=== PATIENT | female | born 1935 | race Caucasian/White ===

== ENCOUNTER 2016-08-13 10:14 | Emergency (ER) | payer MEDICARE, OTHER ==
[~2016-08-13 10:14] MED LIST: HYDR-971 PO
[2016-08-13 10:24] VITALS: BP 144/79
[2016-08-13] MEDS ORDERED: HYDR-971 PO (10:56)
[2016-08-13] MEDS ORDERED: DEXAMETHASONE SOD PHOS 10 MG/ML VIAL IM ONE (11:15)
[2016-08-13] MEDS ORDERED: FENTANYL PF 100 MCG/2 ML VIAL. IM ONE (11:15)
--- NOTE | 2016-08-13 11:51 | ED.ADGEN ---
Past History Past Medical History: Diabetes Past Surgical History: No Surgical History Alcohol Use: None Drug Use: None Adult General HPI HPI Patient is a 81-year-old female presents emergency department cleaning of chronic left shoulder pain and asking we can injected with cortisone today. Patient also reports that she has got right lower back pain. She has had pain in her back since her back surgery last October. Today she states is radiating down her right buttock and leg painful when she applies pressure. Denies any bowel or bladder dysfunction or saddle anesthesia. The patient states that she has not taken anything for the pain because she does not like to take pain pills. However, when asked what she would like for me to do today she responded that she would like some pain medication. Review of Systems Review of Systems Constitutional: Denies fever or chills [] Eyes: Denies change in visual acuity, redness, or eye pain [] HENT: Denies nasal congestion or sore throat [] Respiratory: Denies cough or shortness of breath [] Cardiovascular: No additional information not addressed in HPI [] GI: Denies abdominal pain, nausea, vomiting, bloody stools or diarrhea [] : Denies dysuria or hematuria [] Musculoskeletal: Denies back pain or joint pain [] Integument: Denies rash or skin lesions [] Neurologic: Denies headache, focal weakness or sensory changes [] Endocrine: Denies polyuria or polydipsia [] Current Medications Current Medications Current Medications Medications (Trade) Dose Ordered Sig/Gregory Start Time Stop Time Status Last Admin Dose Admin Dexamethasone Sodium Phosphate (Decadron) 6 mg 1X ONCE 08/13/16 11:15 08/13/16 11:16 DC 08/13/16 11:15 6 MG Fentanyl Citrate (Fentanyl 2ml Vial) 75 mcg 1X ONCE 08/13/16 11:15 08/13/16 11:16 DC 08/13/16 11:21 75 MCG Allergies Allergies Allergies Coded Allergies Type Severity Reaction Last Updated Verified diphenhydramine Allergy Unknown 08/13/16 Yes meperidine Allergy Unknown 08/13/16 Yes trazodone Allergy Unknown 08/13/16 Yes Physical Exam Physical Exam Constitutional: Well developed, well nourished, no acute distress, non-toxic appearance. [] HENT: Normocephalic, atraumatic, bilateral external ears normal, oropharynx moist, no oral exudates, nose normal. [] Eyes: PERRLA, EOMI, conjunctiva normal, no discharge. [] Neck: Normal range of motion, no tenderness, supple, no stridor. [] Cardiovascular:Heart rate regular rhythm, no murmur [] Lungs & Thorax: Bilateral breath sounds clear to auscultation [] Abdomen: Bowel sounds normal, soft, no tenderness, no masses, no pulsatile masses. [] Skin: Warm, dry, no erythema, no rash. [] Back: Right lumbar paraspinal tenderness to palpation, right buttock tenderness to palpation, no CVA tenderness. [] Extremities: No tenderness, no cyanosis, no clubbing, ROM intact, no edema. [] Neurologic: Alert and oriented X 3, normal motor function, normal sensory function, no focal deficits noted. [] Psychologic: Affect normal, judgement normal, mood normal. [] Current Patient Data Vital Signs Vital Signs Date Time Temp Pulse Resp B/P Pulse Ox O2 Delivery O2 Flow Rate FiO2 08/13/16 11:21 16 98 EKG EKG [] Radiology/Procedures Radiology/Procedures [] Course & Med Decision Making Course & Med Decision Making Pertinent Labs and Imaging studies reviewed. (See chart for details) Patient was given an injection of Decadron and fentanyl here in emergency department. Sent home with prescription for [place] as well as with supportive care and follow-up instructions. [] Final Impression Final Impression Low back pain [] Problems: Dragon Disclaimer Dragon Disclaimer This electronic medical record was generated, in whole or in part, using a voice recognition dictation system. GINNA HUI MD Aug 13, 2016 11:51
== END 2016-08-13 11:40 | disposition home or self-care (01) ==
LOC: ER 10:14
DX: M54.5 Low back pain (principal); M25.512 Pain in left shoulder; G89.29 Other chronic pain; E11.9 Type 2 diabetes mellitus without complications; Z88.8 Allergy status to other drugs, medicaments and biological substances
CPT/HCPCS: 96372; 99284; J1100; J3010

== ENCOUNTER 2019-04-10 11:49 | Emergency (ER) | payer MEDICARE, OTHER ==
[~2019-04-10 11:49] MED LIST changes: +HYDR-3165 PO; -HYDR-971 PO
[2019-04-10] MEDS ORDERED: DEXAMETHASONE 4 MG TABLET PO ONE (12:15)
--- NOTE | 2019-04-10 12:31 | RAD ---
PA and lateral views of the chest. Comparison: None. Indication: Cough Findings: There is a retrocardiac renal hernia. 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 Patient status post reverse left glenohumeral arthroplasty. The heart size is normal. No pneumothorax or effusion. No air space or interstitial disease. The bony structures are intact. Impression: 1. No acute cardiopulmonary process. 2. Small retrocardiac hiatal hernia. Electronically signed by: Antonio Celaya MD (04/10/2019 12:29 PM) [facility]
[2019-04-10 12:52] LABS: BACTERIA,URINE FEW /HPF (0-FEW); BILIRUBIN,URINE NEG (NEG); CLARITY,URINE CLEAR; COLOR,URINE YELLOW; GLUCOSE,URINE NEG (NEG); NITRITE,URINE NEG (NEG); UROBILINOGEN,URINE 1 mg/dL (0.2 mg/dL)
[2019-04-10 12:53] LABS: HYALINE CASTS, URINE FEW /HPF; SQUAMOUS EPITHELIAL CELL,UR FEW /LPF
[2019-04-10 13:04] LABS: INFLUENZA A PATIENT NEGATIVE (NEGATIVE); INFLUENZA B PATIENT NEGATIVE (NEGATIVE)
[2019-04-10] MEDS ORDERED: IPRATRPIUM/ALBUTEROL 0.5/2.5MG 3 ML NEBU. NEB ONE (13:30)
[2019-04-10 13:41] VITALS: BP 160/91
[2019-04-10] MEDS ORDERED: ALBU2.5V8 INH (13:41)
[2019-04-10] MEDS ORDERED: PRED20TA PO (13:41)
[2019-04-10] MEDS ORDERED: AZIT250T6 PO (13:41)
--- NOTE | 2019-04-10 13:42 | PHYS DOC ---
Past History Past Medical History: No Pertinent History Past Surgical History: Other Alcohol Use: None Drug Use: None Adult General Chief Complaint Chief Complaint: COUGH HPI HPI Patient is a [age] year old [sex] who presents with [] Review of Systems Review of Systems Constitutional: Denies fever or chills [] Eyes: Denies change in visual acuity, redness, or eye pain [] HENT: Denies nasal congestion or sore throat [] Respiratory: Denies cough or shortness of breath [] Cardiovascular: No additional information not addressed in HPI [] GI: Denies abdominal pain, nausea, vomiting, bloody stools or diarrhea [] : Denies dysuria or hematuria [] Musculoskeletal: Denies back pain or joint pain [] Integument: Denies rash or skin lesions [] Neurologic: Denies headache, focal weakness or sensory changes [] Endocrine: Denies polyuria or polydipsia [] All other systems were reviewed and found to be within normal limits, except as documented in this note. Current Medications Current Medications Current Medications Medications (Trade) Dose Ordered Sig/Gregory Start Time Stop Time Status Last Admin Dose Admin Albuterol/ Ipratropium (Duoneb) 3 ml 1X ONCE 04/10/19 13:30 04/10/19 13:31 DC Dexamethasone (Decadron) 10 mg 1X ONCE 04/10/19 12:15 04/10/19 12:20 DC 04/10/19 12:52 10 MG Allergies Allergies Allergies Coded Allergies Type Severity Reaction Last Updated Verified diphenhydramine Allergy Unknown 08/13/16 Yes meperidine Allergy Unknown 08/13/16 Yes trazodone Allergy Unknown 08/13/16 Yes Physical Exam Physical Exam Constitutional: Well developed, well nourished, no acute distress, non-toxic appearance. [] HENT: Normocephalic, atraumatic, bilateral external ears normal, oropharynx moist, no oral exudates, nose normal. [] Eyes: PERRLA, EOMI, conjunctiva normal, no discharge. [] Neck: Normal range of motion, no tenderness, supple, no stridor. [] Cardiovascular:Heart rate regular rhythm, no murmur [] Lungs & Thorax: Bilateral breath sounds clear to auscultation [] Abdomen: Bowel sounds normal, soft, no tenderness, no masses, no pulsatile masses. [] Skin: Warm, dry, no erythema, no rash. [] Back: No tenderness, no CVA tenderness. [] Extremities: No tenderness, no cyanosis, no clubbing, ROM intact, no edema. [] Neurologic: Alert and oriented X 3, normal motor function, normal sensory function, no focal deficits noted. [] Psychologic: Affect normal, judgement normal, mood normal. [] Current Patient Data Lab Results Laboratory Tests Test 04/10/19 12:02 04/10/19 12:08 Urine Collection Type Unknown Urine Color Yellow Urine Clarity Clear Urine pH 7.0 Urine Specific [place] 1.020 Urine Protein 100 mg/dl (NEG-TRACE) Urine Glucose (UA) Neg mg/dL (NEG) Urine Ketones (Stick) Neg mg/dL (NEG) Urine Blood Neg (NEG) Urine Nitrite Neg (NEG) Urine Bilirubin Neg (NEG) Urine Urobilinogen Dipstick 1 mg/dL (0.2 mg/dL) Urine Leukocyte Esterase Neg (NEG) Urine RBC 1-2 /HPF (0-2) Urine WBC 1-4 /HPF (0-4) Urine Squamous Epithelial Cells Few /LPF Urine Bacteria Few /HPF (0-FEW) Urine Hyaline Casts Few /HPF Urine Mucus Slight /LPF Influenza Type A (Rapid) Negative (NEGATIVE) Influenza Type B (Rapid) Negative (NEGATIVE) EKG EKG [] Radiology/Procedures Radiology/Procedures [] Course & Med Decision Making Course & Med Decision Making Pertinent Labs and Imaging studies reviewed. (See chart for details) [] Dragon Disclaimer Dragon Disclaimer This electronic medical record was generated, in whole or in part, using a voice recognition dictation system. Departure Departure: Impression: Primary Impression: Bronchitis Disposition: 01 HOME, SELF-CARE Condition: STABLE Referrals: CARLINE WOLFF MD (PCP) Patient Instructions: Bronchitis, [id number] Scripts Azithromycin (AZITHROMYCIN TABLET) 250 Mg Tablet 1 PKG PO UD for bronchitis, #6 TAB Take 2 tablets today and then one tablet every day thereafter for the next 4 days Prov: CHINMAY DE LEÓN DO 04/10/19 Prednisone (PREDNISONE) 20 Mg Tablet 2 TAB PO DAILY for Bronchitis, #8 TAB Prov: CIHNMAY DE LEÓN DO 04/10/19 Albuterol Sulfate (PROAIR HFA INHALER) 8.5 Gm Hfa.aer.ad 1 PUFF INH PRN Q6HRS PRN for WHEEZING, #1 INHALER 0 Refills Prov: CHINMAY DE LEÓN DO 04/10/19 CHINMAY DE LEÓN DO Apr 10, 2019 13:42
== END 2019-04-10 13:58 | disposition home or self-care (01) ==
LOC: ER 11:49
DX: J40 Bronchitis, not specified as acute or chronic (principal); Z88.8 Allergy status to other drugs, medicaments and biological substances
CPT/HCPCS: 71046; 81001; 87804; 94640; 99285; J7620; J8540

== ENCOUNTER 2019-04-15 16:06 | Emergency (ER) | payer MEDICARE, OTHER ==
[~2019-04-15] VITALS: Ht 157.5 cm; Wt 74.8 kg
[~2019-04-15 16:06] MED LIST changes: +ALBU2.5V8 INH; +AZIT250T6 PO; +PRED20TA PO
[2019-04-15 17:42] LABS: BASO # 0.1 x10^3/uL (0.0-0.2); BASO % 1 % (0-3); EOS # 0.1 x10^3/uL (0.0-0.7); EOS % 0 % (0-3); HEMATOCRIT 39.8 % (36.0-47.0); LYMPH # 3.3 x10^3/uL (1.0-4.8); LYMPH % 25 % (24-48); MEAN CORPUSCULAR HEMOGLOBIN 31 pg (25-35); MEAN CORPUSCULAR HGB CONC 33 g/dL (31-37); MEAN CORPUSCULAR VOLUME 95 fL (79-100); MONO # 1.8 x10^3/uL (0.0-1.1); MONO % 13 % (0-9); NEUT # 8.3 x10^3uL (1.8-7.7); NEUT % 61 % (31-73); PLATELET COUNT 315 x10^3/uL (140-400); RED CELL DISTRIBUTION WIDTH 14.7 % (11.5-14.5); WHITE BLOOD COUNT 13.5 x10^3/uL (4.0-11.0)
[2019-04-15 17:44] LABS: BILIRUBIN,URINE NEG (NEG); CLARITY,URINE HAZY; COLOR,URINE YELLOW; GLUCOSE,URINE NEG (NEG); NITRITE,URINE NEG (NEG); UROBILINOGEN,URINE 0.2 mg/dL (0.2 mg/dL)
[2019-04-15 17:45] LABS: BACTERIA,URINE FEW /HPF (0-FEW); GRANULAR CASTS,URINE FEW /HPF; HYALINE CASTS, URINE MOD /HPF; SQUAMOUS EPITHELIAL CELL,UR FEW /LPF
[2019-04-15 17:57] LABS: ALBUMIN 4.1 g/dL (3.4-5.0); ALBUMIN/GLOBULIN RATIO 1.2 (1.0-1.7); CALCIUM 9.6 mg/dL (8.5-10.1); CREATININE 1.7 mg/dL (0.6-1.0); GFR 28.8; POTASSIUM 4.2 mmol/L (3.5-5.1); TOTAL BILIRUBIN 0.6 mg/dL (0.2-1.0); TOTAL PROTEIN 7.6 g/dL (6.4-8.2)
[2019-04-15 18:01] VITALS: BP 129/85
[2019-04-15] MEDS ORDERED: CLON0.5T4 PO (18:17)
--- NOTE | 2019-04-15 18:17 | PHYS DOC ---
Past History Past Medical History: Anxiety, Diabetes, Hypertension, Hypothyroid, Renal Disease Past Surgical History: Cholecystectomy, Tonsillectomy, Other Additional Past Surgical Histo: L SHOULDER, BREAST REDUCTION, BACK Alcohol Use: None Drug Use: None Adult General Chief Complaint Chief Complaint: [facility] Patient is an 83-year-old female who presents with report that family had wanted her to come in to be evaluated medically. Patient had been seen a few days ago and was placed on antibiotics and steroids for an upper respiratory infection. Patient apparently has been staying up at night and has been yelling at family members. Patient denies any chest pain or shortness of breath. She states that she has been under a lot of stress lately and does feel very jittery with the medication she is taking. She denies any suicidal or homicidal ideations.[] Review of Systems Review of Systems Constitutional: Denies fever or chills [] Respiratory: Denies cough or shortness of breath [] Cardiovascular: No additional information not addressed in HPI [] GI: Denies abdominal pain, nausea, vomiting or diarrhea [] Integument: Denies rash or skin lesions [] Neurologic: Denies headache, focal weakness or sensory changes [] All other systems were reviewed and found to be within normal limits, except as documented in this note. Allergies Allergies Allergies Coded Allergies Type Severity Reaction Last Updated Verified diphenhydramine Allergy Unknown 08/13/16 Yes meperidine Allergy Unknown 08/13/16 Yes trazodone Allergy Unknown 08/13/16 Yes Physical Exam Physical Exam Constitutional: Well developed, well nourished, no acute distress, non-toxic appearance. [] HENT: Normocephalic, atraumatic, bilateral external ears normal, oropharynx moist, no oral exudates, nose normal. [] Eyes: PERRLA, EOMI, conjunctiva normal, no discharge. [] Neck: Normal range of motion, no tenderness, supple, no stridor. [] Cardiovascular: Regular rate and rhythm[] Lungs & Thorax: Bilateral breath sounds clear to auscultation [] Abdomen: Bowel sounds normal, soft, no tenderness. [] Skin: Warm, dry, no erythema, no rash. [] Extremities: No tenderness, no cyanosis, no clubbing, ROM intact. [] Neurologic: Alert and oriented X 3, no focal deficits noted. [] Current Patient Data Vital Signs Vital Signs Date Time Temp Pulse Resp B/P (MAP) Pulse Ox O2 Delivery O2 Flow Rate FiO2 04/15/19 18:01 79 20 129/85 (100) 100 Room Air 04/15/19 16:15 98.7 Lab Results Laboratory Tests Test 04/15/19 17:17 04/15/19 17:27 Urine Collection Type Unknown Urine Color Yellow Urine Clarity Hazy Urine pH 5.5 Urine Specific [place] 1.010 Urine Protein 30 mg/dl (NEG-TRACE) Urine Glucose (UA) Neg mg/dL (NEG) Urine Ketones (Stick) Neg mg/dL (NEG) Urine Blood Trace (NEG) Urine Nitrite Neg (NEG) Urine Bilirubin Neg (NEG) Urine Urobilinogen Dipstick 0.2 mg/dL (0.2 mg/dL) Urine Leukocyte Esterase Small (NEG) Urine RBC 1-2 /HPF (0-2) Urine WBC 5-10 /HPF (0-4) Urine Squamous Epithelial Cells Few /LPF Urine Bacteria Few /HPF (0-FEW) Urine Cellular Casts Occ /HPF Urine Hyaline Casts Mod /HPF Urine Granular Casts Few /HPF Urine Mucus Slight /LPF White Blood Count 13.5 x10^3/uL (4.0-11.0) H Red Blood Count 4.20 x10^6/uL (3.50-5.40) Hemoglobin 13.0 g/dL (12.0-15.5) Hematocrit 39.8 % (36.0-47.0) Mean Corpuscular Volume 95 fL (79-100) Mean Corpuscular Hemoglobin 31 pg (25-35) Mean Corpuscular Hemoglobin Concent 33 g/dL (31-37) Red Cell Distribution Width 14.7 % (11.5-14.5) H Platelet Count 315 x10^3/uL (140-400) Neutrophils (%) (Auto) 61 % (31-73) Lymphocytes (%) (Auto) 25 % (24-48) Monocytes (%) (Auto) 13 % (0-9) H Eosinophils (%) (Auto) 0 % (0-3) Basophils (%) (Auto) 1 % (0-3) Neutrophils # (Auto) 8.3 x10^3uL (1.8-7.7) H Lymphocytes # (Auto) 3.3 x10^3/uL (1.0-4.8) Monocytes # (Auto) 1.8 x10^3/uL (0.0-1.1) H Eosinophils # (Auto) 0.1 x10^3/uL (0.0-0.7) Basophils # (Auto) 0.1 x10^3/uL (0.0-0.2) Sodium Level 139 mmol/L (136-145) Potassium Level 4.2 mmol/L (3.5-5.1) Chloride Level 102 mmol/L (98-107) Carbon Dioxide Level 22 mmol/L (21-32) Anion Gap 15 (6-14) H Blood Urea Nitrogen 34 mg/dL (7-20) H Creatinine 1.7 mg/dL (0.6-1.0) H Estimated GFR (Cockcroft-Gault) 28.8 BUN/Creatinine Ratio 20 (6-20) Glucose Level 104 mg/dL (70-99) H Calcium Level 9.6 mg/dL (8.5-10.1) Total Bilirubin 0.6 mg/dL (0.2-1.0) Aspartate Amino Transferase (AST) 66 U/L (15-37) H Alanine Aminotransferase (ALT) 35 U/L (14-59) Alkaline Phosphatase 76 U/L (46-116) Total Protein 7.6 g/dL (6.4-8.2) Albumin 4.1 g/dL (3.4-5.0) Albumin/Globulin Ratio 1.2 (1.0-1.7) EKG EKG [] Radiology/Procedures Radiology/Procedures [] Course & Med Decision Making Course & Med Decision Making Pertinent Labs and Imaging studies reviewed. (See chart for details) [] Dragon Disclaimer Dragon Disclaimer This electronic medical record was generated, in whole or in part, using a voice recognition dictation system. Departure Departure: Impression: Primary Impression: Upper respiratory infection Additional Impression: Anxiety Disposition: 01 HOME, SELF-CARE Condition: STABLE Referrals: CARLINE WOLFF MD (PCP) Patient Instructions: Anxiety and Panic Attacks, Upper Respiratory Infection, Adult Scripts Clonazepam (CLONAZEPAM) 0.5 Mg Tablet 1 TAB PO BID PRN for ANXIETY / AGITATION, #10 TAB Prov: GRUPO MIRAMONTES Jr. DO 11/25/19 Problem Qualifiers Primary Impression: Upper respiratory infection URI type: unspecified URI Qualified Codes: J06.9 - Acute upper respiratory infection, unspecified GRUPO MIRAMONTES Jr. DO Apr 15, 2019 18:17
== END 2019-04-15 18:28 | disposition home or self-care (01) ==
LOC: ER 16:06
DX: F41.9 Anxiety disorder, unspecified (principal); J06.9 Acute upper respiratory infection, unspecified; E11.9 Type 2 diabetes mellitus without complications; I10 Essential (primary) hypertension; E03.9 Hypothyroidism, unspecified; N28.9 Disorder of kidney and ureter, unspecified; Z88.8 Allergy status to other drugs, medicaments and biological substances
CPT/HCPCS: 36415; 80053; 81001; 85025; 87086; 99284

== ENCOUNTER 2019-04-16 19:30 | Observation (INO) | payer MEDICARE ==
[~2019-04-16] VITALS: Ht 157.5 cm; Wt 78.2 kg
[~2019-04-16 19:30] MED LIST changes: +CLON0.5T4 PO
--- NOTE | 2019-04-16 20:17 | PHYS DOC ---
Past History Past Medical History: Anxiety, Diabetes, Hypertension, Hypothyroid, Renal Disease Past Surgical History: Cholecystectomy, Tonsillectomy, Other Additional Past Surgical Histo: L SHOULDER, BREAST REDUCTION, BACK Alcohol Use: None Drug Use: None Adult General Chief Complaint Chief Complaint: OVERDOSE HPI HPI 83-year-old female presents with concern for clonazepam overdose. History is provided by the daughter who is DPOA for medical decisions. The patient apparently took taken 5 one half milligram tablets today. He was understanding she was supposed to take 2 every 4 hours. She is now quite sleepy. The patient has bipolar and has been very irritated last few days. She did not sleep for 3 days. She did sleep somewhat last night. The patient also has Ambien prescribed. Possible that she took an Ambien. Her family is unsure. They're very concerned about her having 3 falls in the last 4 days. She is also been quite mean and agitated with her bipolar. She is not currently on bipolar medications. Review of Systems Review of Systems Constitutional: Denies fever or chills. Very sleepy. [] Eyes: Denies change in visual acuity, redness, or eye pain [] HENT: Denies nasal congestion or sore throat [] Respiratory: Denies cough or shortness of breath [] Cardiovascular: No additional information not addressed in HPI [] GI: Denies abdominal pain, nausea, vomiting, bloody stools or diarrhea [] : Denies dysuria or hematuria [] Musculoskeletal: Denies back pain or joint pain [] Integument: Denies rash or skin lesions [] Neurologic: Denies headache, focal weakness or sensory changes [] Endocrine: Denies polyuria or polydipsia [] All other systems were reviewed and found to be within normal limits, except as documented in this note. Allergies Allergies Allergies Coded Allergies Type Severity Reaction Last Updated Verified diphenhydramine Allergy Unknown 08/13/16 Yes meperidine Allergy Unknown 08/13/16 Yes trazodone Allergy Unknown 08/13/16 Yes Physical Exam Physical Exam Constitutional: Sleepy. Well developed, well nourished, no acute distress, non- toxic appearance. [] HENT: Normocephalic, atraumatic, bilateral external ears normal, oropharynx moist, no oral exudates, nose normal. [] Eyes: PERRLA, EOMI, conjunctiva normal, no discharge. [] Neck: Normal range of motion, no tenderness, supple, no stridor. [] Cardiovascular:Heart rate regular rhythm, no murmur [] Lungs & Thorax: Bilateral breath sounds with expiratory wheezing[] Abdomen: Bowel sounds normal, soft, no tenderness, no masses, no pulsatile masses. [] Skin: Warm, dry, no erythema, no rash. [] Back: No tenderness, no CVA tenderness. [] Extremities: No tenderness, no cyanosis, no clubbing, ROM intact, no edema. [] Neurologic: Alert and oriented X 3, normal motor function, normal sensory function, no focal deficits noted. [] Psychologic: Unable to assess. [] EKG EKG Sinus rhythm, rate 62, normal axis, no ST elevations or depressions.[] Radiology/Procedures Radiology/Procedures [] Impressions: Exam: CT head INDICATION: Disoriented TECHNIQUE: Sequential axial images through the head were obtained without the administration of IV contrast. Comparisons: None FINDINGS: No focal parenchymal lesion or hemorrhage is identified. There is no midline shift or sulcal effacement. Patchy hypodensities are noted within the periventricular white matter. No acute vascular territory infarction is identified. Collier-white distinction is preserved. The ventricular system is within normal limits without compression hydrocephalus. The basal cisterns are well maintained. The visualized portions of the paranasal sinuses and mastoid air cells are well-pneumatized. No acute fractures. IMPRESSION: Small vessel ischemic change, technically age indeterminate without prior imaging. Exposure: One or more of the following in the visualized dose reduction techniques were utilized for this examination: 1. Automated exposure control 2. Adjustment of the MA and/or KV according to patient size Use of iterative of reconstructive technique Electronically signed by: Lb Tellez MD (04/16/2019 9:07 PM) [facility] DICTATED AND SIGNED BY: LB TELLEZ MD DATE: 04/16/192106 CC: SAÚL RODRIGUEZ DO; CARLINE WOLFF MD ~ Course & Med Decision Making Course & Med Decision Making Pertinent Labs and Imaging studies reviewed. (See chart for details) The patient's current condition and inability to provide a full history I'm very concerned she cannot take care of herself right now. I will admit her to the hospital to sleep off her medication overdose. I believe it may also be worthwhile to have her evaluated by behavioral health as it sounds like they're having a lot of trouble with her. She has become quite belligerent and is having signs of manic episodes's last several days. She may need some acute stabilization. I spoke with Dr. Hood and he has accepted the patient for admission. [] Dragon Disclaimer Dragon Disclaimer This electronic medical record was generated, in whole or in part, using a voice recognition dictation system. Departure Departure: Impression: Primary Impression: Medication overdose Disposition: ADMITTED INPATIENT Admitting Physician: Amos Hood Condition: STABLE Referrals: CARLINE WOLFF MD (PCP) Problem Qualifiers Primary Impression: Medication overdose Encounter type: initial encounter Injury intent: accidental or unintentional Qualified Codes: T50.901A - Poisoning by unspecified drugs, medicaments and biological substances, accidental (unintentional), initial encounter SAÚL RODRIGUEZ DO Apr 16, 2019 20:17
--- NOTE | 2019-04-16 21:10 | RAD ---
Exam: CT head INDICATION: Disoriented TECHNIQUE: Sequential axial images through the head were obtained without the administration of IV contrast. Comparisons: None FINDINGS: No focal parenchymal lesion or hemorrhage is identified. There is no midline shift or sulcal effacement. Patchy hypodensities are noted within the periventricular white matter. No acute vascular territory infarction is identified. Collier-white distinction is preserved. The ventricular system is within normal limits without compression hydrocephalus. The basal cisterns are well maintained. The visualized portions of the paranasal sinuses and mastoid air cells are well-pneumatized. No acute fractures. IMPRESSION: Small vessel ischemic change, technically age indeterminate without prior imaging. Exposure: One or more of the following in the visualized dose reduction techniques were utilized for this examination: 1. Automated exposure control 2. Adjustment of the MA and/or KV according to patient size Use of iterative of reconstructive technique Electronically signed by: Lb Hidalgo MD (04/16/2019 9:07 PM) [facility]
[2019-04-16 21:22] LABS: BASO % 0 % (0-3); EOS # 0.2 x10^3/uL (0.0-0.7); EOS % 2 % (0-3); HEMATOCRIT 34.9 % (36.0-47.0); HEMOGLOBIN 11.1 g/dL (12.0-15.5); LYMPH # 2.6 x10^3/uL (1.0-4.8); LYMPH % 21 % (24-48); MEAN CORPUSCULAR HEMOGLOBIN 30 pg (25-35); MEAN CORPUSCULAR HGB CONC 32 g/dL (31-37); MEAN CORPUSCULAR VOLUME 95 fL (79-100); MONO # 1.4 x10^3/uL (0.0-1.1); MONO % 12 % (0-9); NEUT # 7.8 x10^3uL (1.8-7.7); NEUT % 65 % (31-73); PLATELET COUNT 284 x10^3/uL (140-400); RED BLOOD COUNT 3.67 x10^6/uL (3.50-5.40); RED CELL DISTRIBUTION WIDTH 14.8 % (11.5-14.5); WHITE BLOOD COUNT 12.1 x10^3/uL (4.0-11.0)
[2019-04-16 21:33] LABS: ALBUMIN 3.2 g/dL (3.4-5.0); ALBUMIN/GLOBULIN RATIO 1.1 (1.0-1.7); CALCIUM 8.7 mg/dL (8.5-10.1); CREATININE 1.1 mg/dL (0.6-1.0); GFR 47.6; POTASSIUM 3.8 mmol/L (3.5-5.1); TOTAL BILIRUBIN 0.3 mg/dL (0.2-1.0); TOTAL PROTEIN 6.2 g/dL (6.4-8.2)
[2019-04-16 21:41] LABS: AMPHETAMINE/METHAMPHETAMINE NEG (NEG); BARBITURATES NEG (NEG); BENZODIAZEPINES NEG (NEG); CANNABINOIDS NEG (NEG); COCAINE NEG (NEG); METHADONE NEG (NEG); OPIATES NEG (NEG); PHENCYCLIDINE NEG (NEG)
[2019-04-16 21:46] LABS: BACTERIA,URINE 0 /HPF (0-FEW); BILIRUBIN,URINE NEG (NEG); CLARITY,URINE CLEAR; COLOR,URINE STRAW; GLUCOSE,URINE NEG (NEG); NITRITE,URINE NEG (NEG); RBC,URINE 0 /HPF (0-2); UROBILINOGEN,URINE 0.2 mg/dL (0.2 mg/dL); WBC,URINE 0 /HPF (0-4)
[2019-04-16] MEDS ORDERED: ONDANSETRON PF 4 MG/2 ML VIAL. IV PRN (22:45)
[2019-04-17] MEDS ORDERED: LOSA25TA11 PO (00:06)
[2019-04-17] MEDS ORDERED: CYCL5TAB PO (00:06)
[2019-04-17] MEDS ORDERED: LEVO88TA4 PO (00:06)
[2019-04-17] MEDS ORDERED: ZOLP10TA4 PO (00:06)
[2019-04-17] MEDS ORDERED: SERT25TA4 PO (00:06)
[2019-04-17] MEDS ORDERED: GABA300C8 PO (00:06)
[2019-04-17 00:13] VITALS: BP 144/80
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
[2019-04-17] MEDS ORDERED: ALBUTEROL SULFATE 2.5 MG/3 ML NEBU. INH PRN (05:30)
--- NOTE | 2019-04-17 05:31 | NUR ---
Spoke with Dr. Hood. Orders to continue home medications with the exception of clonidine, cyclobenzaprine and Ambien.
[2019-04-17] MEDS: LEVOTHYROXINE 88 MCG TABLET PO SCH (06:39)
--- NOTE | 2019-04-17 06:58 | EKG ---
[address] [address] Test Date: 2019-04-16 Test Time: 19:35:54 Pat Name: CHRISTY HSU Department: Room: 124 A Gender: F Cat Skinner: : [id number] Requested By: SAÚL RODRIGUEZ Order Number: [id number] Reading MD: Measurements Intervals [place] Rate: 62 P: -25 AR: 144 QRS: 1 QRSD: 78 T: 95 QT: 392 QTc: 400 Interpretive Statements SINUS RHYTHM T ABNORMALITY IN ANTEROLATERAL LEADS ABNORMAL ECG RI6.01 No previous ECG available for comparison
[2019-04-17 08:03] LABS: BASO # 0.1 x10^3/uL (0.0-0.2); BASO % 1 % (0-3); EOS # 0.2 x10^3/uL (0.0-0.7); EOS % 3 % (0-3); HEMATOCRIT 36.3 % (36.0-47.0); HEMOGLOBIN 11.8 g/dL (12.0-15.5); LYMPH # 1.8 x10^3/uL (1.0-4.8); LYMPH % 19 % (24-48); MEAN CORPUSCULAR HEMOGLOBIN 31 pg (25-35); MEAN CORPUSCULAR HGB CONC 33 g/dL (31-37); MEAN CORPUSCULAR VOLUME 95 fL (79-100); MONO # 1.2 x10^3/uL (0.0-1.1); MONO % 13 % (0-9); NEUT # 6.2 x10^3uL (1.8-7.7); NEUT % 66 % (31-73); PLATELET COUNT 267 x10^3/uL (140-400); RED BLOOD COUNT 3.84 x10^6/uL (3.50-5.40); RED CELL DISTRIBUTION WIDTH 14.6 % (11.5-14.5); WHITE BLOOD COUNT 9.4 x10^3/uL (4.0-11.0)
[2019-04-17 08:15] LABS: CALCIUM 8.3 mg/dL (8.5-10.1); CREATININE 0.9 mg/dL (0.6-1.0); GFR 59.9; POTASSIUM 4.1 mmol/L (3.5-5.1); TOTAL BILIRUBIN 0.4 mg/dL (0.2-1.0); TOTAL PROTEIN 6.1 g/dL (6.4-8.2)
[2019-04-17] MEDS: GABAPENTIN 300 MG CAPSULE. PO SCH ×2 (08:23→20:03)
[2019-04-17] MEDS: SERTRALINE 25 MG TABLET. PO SCH (08:23)
[2019-04-17] MEDS: LOSARTAN 25 MG TABLET. PO SCH (08:28)
[2019-04-17 08:29] VITALS: BP 122/81
[2019-04-17 09:56] LABS: % ATYL 5 % (0-0); % BASOS 1 % (0-3); % EOS 1 % (0-5); % LYMPHS 19 % (24-48); % MONOS 8 % (0-10); % SEGS 66 % (35-66)
[2019-04-17 10:06] LABS: PLT ESTIMATE ADEQUATE (ADEQUATE)
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
[2019-04-17 10:28] VITALS: BP 152/71
--- NOTE | 2019-04-17 10:57 | NUR ---
Assisted PT to bathroom; stand by assist. PT steady on feet, needs help sitting down and standing up. PT voided. Clean depends provided to PT at her request. Assisted PT with hygiene, cleaning face/neck/shoulders/underarms. Hygiene items provided to PT for oral hygiene, which she states she will do later herself. Provided PT with fresh ice water at her request. PT AO4, very pleasant.
--- NOTE | 2019-04-17 12:00 | NUR ---
Patient requesting to update DPOA preferences, requiring notary and drivers licenses. Patient does not having purse with her and stated that she asked her grandaughter to bring up her belongings. Peyman stated to nurses "My grandmother wants me to bring up her cell phone and wallet but i do not think that is a good idea.. she likes to spend money on her credit cards when she is bored." Nurse explained that if she would like to have her phone she is more then welcome to bring that up. director field services notified and has been in room with patient discussing care at home.
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
--- NOTE | 2019-04-17 14:14 | NUR ---
SW attempted to contact pt son, Tra, and was told he was at work. Pt Daughter in law reports that he won't be available until after 5. Pt dtr in law reports that she has been to pt son for 30 years and her "mother in law has had a slew of issues over time". Pt dtr in law reports 3 different psych stays "but we don't know her diagnosis. She's very secretive and doesn't talk about stuff". Pt dtr in law reports that they all feel that she is Bipolar and júnior is her "crazy" state. Pt supposedly spent $5,000 at [employer] once she found out they were going out of business and reports other "spending episodes" off [employer] and other sites. SW did mention pt negative lab screen and the dtr in law said "what"?! My granddaughter said that 5 pills were missing out of that bottle. If she didn't take them/nothing showed in her system, where are they". Pt dtr in law feels that because pt is "able to recite her name, the year and who the president is, no one is seeing what we see and have to deal with. She may be able to cover it up for awhile, but overtime, her stories and excuses don't make sense". BAYLEE will follow up with the family at a later time to go over recommendations and to discuss when discharge will be set for pt.
[2019-04-17 14:19] VITALS: BP 130/69
--- NOTE | 2019-04-17 16:48 | NUR ---
BAYLEE returned call to pt valdemar, Katrin, to discuss the reasons for why pt does not meet criteria to stay on the medical floor and further discussed the fact that pt is not physically acting out or displaying anything inappropriate that would show that she needs to be on the psychiatric unit for evaluation. Pt kobetejas was very tearful and reported that she will not pick pt up. She feels that she has to put her children first and that if pt was sent home, she would be by herself, but because they will leave. BAYLEE explained that best case scenario, pt will need to be placed in an HALFW[facility]. Worst case scenario, pt will have to go home despite pt family request and the state will continue to work with the family until all things have been resolved. Pt dtr feels that pt is able to blow through things; however, no one has ever seen it because she covers well. BAYLEE explained that she may be correct; however, with resources in the home to see the dynamics will eventually lead towards them seeing behaviors and gives a greater chance for all parties to be evaluated and settle the family dynamic. Pt valdemar asked what happened with an abandonment hotline. BAYLEE explained that once an abandonment hotline was made, the state will have a worker meet with the pt and then they will meet with the family. Based off their findings, the family may have to take pt against their wishes or they will agree that for the safety and well-being of all, pt cannot go home and will need to be placed in a facility. Pt valdemar understood tal stated tearfully, "this is going to make me look bad, but go ahead and make that call. As a mother, I cannot put my kids through this. My oldest has been with my parents since Monday all because of her behaviors and I'm done". BAYLEE will place an abandonment call and follow up with all parties on the outcome. In the meantime, BAYLEE will also send out [facility] referrals to local placements to see if pt is able to be an option. BAYLEE did inform pt dtr that with pt caring for her own finances, that would also depend of pt agreement for payment. Pt valdemar reports that pt receives $5,000 per month.
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
--- NOTE | 2019-04-17 18:00 | NUR ---
grounds worker working with Hotline call to Adult Protective Services at this time. Explained to patient the situation that is occuring, patient agrees and understands the measures that need to take place. Patient stated she does not want to go home with son or daughter in law at this time, "Why should i go home with the and have to deal with all this; ill just stay here." Patient becomes very agitated when talking to family members on the phone. Nurse spoke with Daughter in law in regards to patient status, explained that patient is medically stable and is okay to discharge home. Family continues to state that patient cant go home to granddaughters home and stay there when the 11 year old will not even come home. grounds worker notified of living condition and family situation.
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
--- NOTE | 2019-04-17 18:20 | NUR ---
Mother in law stated that they would be happy to come get patient if they could just talk to patient to see if she is okay, family then continues to question why she is being discharged from hospital. Stating "We have DPOA paperwork in place and diagnosis that state she is Bipolar, schizophrenic." Also stating "You are going to believe everything she is stating and not going to consider what the family says?" Family continues to call facility and question why she is being discharged. patient wishes to not go with family at this time, even though granddaughter refuses to pickling solution maker due to living situation. Spoke with social media marketer and stated that since there is a Hotline and tracking number case that we should not discharge patient via cab to home. Patient in room at this time, no behaviors noted so far this shift. Patient has been appropriate with staff, alert and oriented to unit. Continent of bowel and bladder; independent with care and able to make needs known. Call light within reach.
[2019-04-17 19:42] VITALS: BP 139/75
[2019-04-17 23:02] VITALS: BP 143/74
[2019-04-18] MEDS: LEVOTHYROXINE 88 MCG TABLET PO SCH (05:18)
[2019-04-18] MEDS: SERTRALINE 25 MG TABLET. PO SCH (09:10)
[2019-04-18] MEDS: GABAPENTIN 300 MG CAPSULE. PO SCH (09:10)
[2019-04-18] MEDS: LOSARTAN 25 MG TABLET. PO SCH (09:10)
[2019-04-18 12:17] VITALS: BP 148/82
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
== END 2019-04-18 15:12 | disposition home or self-care (01) ==
LOC: ER 19:30 → INTOOBSV 22:30 → 1 SOUTH 22:30
PROVIDERS: ADMIT Internal Medicine; ATTEND Internal Medicine
DX: T50.901A Poisoning by unspecified drugs, medicaments and biological substances, accidental (unintentional), initial encounter (principal); F41.9 Anxiety disorder, unspecified; I12.9 Hypertensive chronic kidney disease with stage 1 through stage 4 chronic kidney disease, or unspecified chronic kidney disease; N18.9 Chronic kidney disease, unspecified; E11.22 Type 2 diabetes mellitus with diabetic chronic kidney disease; J44.9 Chronic obstructive pulmonary disease, unspecified; E03.9 Hypothyroidism, unspecified; F31.9 Bipolar disorder, unspecified; M19.90 Unspecified osteoarthritis, unspecified site; M06.9 Rheumatoid arthritis, unspecified; Z90.49 Acquired absence of other specified parts of digestive tract; Z98.890 Other specified postprocedural states
CPT/HCPCS: 36415; 70450; 80053; 80307; 81001; 82947; 85007; 85025; 93005; 94640; 99284; G0378; J7613; G0379

== ENCOUNTER 2019-06-17 11:22 | Inpatient (IN) | payer MEDICARE ==
[~2019-06-17] VITALS: Ht 157.5 cm; Wt 72.3 kg
[~2019-06-17 11:22] MED LIST changes: +CYCL5TAB PO; +GABA300C8 PO; +LEVO88TA4 PO; +LOSA25TA11 PO; +SERT25TA4 PO; +ZOLP10TA4 PO
--- NOTE | 2019-06-17 11:47 | PHYS DOC ---
Past History Past Medical History: Anxiety, Bipolar, Diabetes, Hypertension, Hypothyroid, Renal Disease Past Surgical History: Cholecystectomy, Tonsillectomy, Other Additional Past Surgical Histo: L SHOULDER, BREAST REDUCTION, BACK Alcohol Use: None Drug Use: None Adult General Chief Complaint Chief Complaint: PSYCH EVALUATION HPI HPI 84-year-old female presents via EMS for possible psychiatric evaluation. The police came to the patient's house and found to be in great disarray and the last time they visited the patient's house in April. They called paramedics to have the patient evaluated. The patient has been in to hospitals in the last couple months for psychiatric evaluations. The patient does not know the results of these. When I ask her what happened today she tells me that she was having some back pain and laid down on the floor while she was cleaning. She denies any falls or injuries. She is not complaining of any current significant pain. She does mention that her children have restraining orders against him in the hospitals be coming to her house. It sounds like they came over to picker / packer something and that made been why the police were involved. EMS was called by police and I am not sure who called the police. Review of Systems Review of Systems Constitutional: Denies fever or chills [] Eyes: Denies change in visual acuity, redness, or eye pain [] HENT: Denies nasal congestion or sore throat [] Respiratory: Denies cough or shortness of breath [] Cardiovascular: No additional information not addressed in HPI [] GI: Denies abdominal pain, nausea, vomiting, bloody stools or diarrhea [] : Denies dysuria or hematuria [] Musculoskeletal: Denies back pain or joint pain [] Integument: Denies rash or skin lesions [] Neurologic: Denies headache, focal weakness or sensory changes [] Endocrine: Denies polyuria or polydipsia [] All other systems were reviewed and found to be within normal limits, except as documented in this note. Allergies Allergies Allergies Coded Allergies Type Severity Reaction Last Updated Verified diphenhydramine Allergy Unknown 08/13/16 Yes meperidine Allergy Unknown 08/13/16 Yes trazodone Allergy Unknown 08/13/16 Yes Physical Exam Physical Exam Constitutional: Well developed, well nourished, no acute distress, non-toxic appearance. [] HENT: Normocephalic, atraumatic, bilateral external ears normal, oropharynx moist, no oral exudates, nose normal. [] Eyes: PERRLA, EOMI, conjunctiva normal, no discharge. [] Neck: Normal range of motion, no tenderness, supple, no stridor. [] Cardiovascular:Heart rate regular rhythm, no murmur [] Lungs & Thorax: Bilateral breath sounds clear to auscultation [] Abdomen: Bowel sounds normal, soft, no tenderness, no masses, no pulsatile masses. [] Skin: Warm, dry, no erythema, no rash. [] Back: No tenderness, no CVA tenderness. [] Extremities: No tenderness, no cyanosis, no clubbing, ROM intact, no edema. [] Neurologic: Alert and oriented X 3, normal motor function, normal sensory function, no focal deficits noted. [] Psychologic: Affect pressured speech, judgement normal, mood anxious. [] EKG EKG Sinus rhythm, rate 64, normal axis, no ST elevations or depressions, inverted T waves V4 through V6[] Radiology/Procedures Radiology/Procedures [] Course & Med Decision Making Course & Med Decision Making Pertinent Labs and Imaging studies reviewed. (See chart for details) The patient is alert and oriented, but does not seem to have a full recollection of today's events. We will attempt to contact the local police department for more information. There is no family with the patient. After talking to the police department in the patient's DPOA, the patient was discharged from another hospital to an assisted living facility in April. She left there May 23 back to her house. She has been living alone since that time. Family has been calling police for well-child checks weekly. They are the ones that called the police today. Patient's labs are significant for a slightly decreased potassium. Her urine did not show obvious infection. I spoke with Dr. Hood about the patient has accepted her for admission. He has requested Rocephin to cover possible UTI. The patient has had hearing with admission. [] Dragon Disclaimer Dragon Disclaimer This electronic medical record was generated, in whole or in part, using a voice recognition dictation system. Departure Departure: Impression: Primary Impression: Weakness Additional Impressions: Bipolar affective disorder Hypokalemia Disposition: ADMITTED INPATIENT Admitting Physician: Amos Hood Condition: STABLE Referrals: CARLINE WOLFF MD (PCP) Problem Qualifiers Additional Impressions: Bipolar affective disorder Active/Remission status: currently active Current bipolar episode type: hypomanic Qualified Codes: F31.0 - Bipolar disorder, current episode hypomanic SAÚL RODRIGUEZ DO Jun 17, 2019 11:47
[2019-06-17 12:08] LABS: BASO # 0.1 x10^3/uL (0.0-0.2); BASO % 1 % (0-3); EOS % 0 % (0-3); HEMATOCRIT 39.6 % (36.0-47.0); HEMOGLOBIN 12.8 g/dL (12.0-15.5); LYMPH # 1.1 x10^3/uL (1.0-4.8); LYMPH % 8 % (24-48); MEAN CORPUSCULAR HEMOGLOBIN 31 pg (25-35); MEAN CORPUSCULAR HGB CONC 32 g/dL (31-37); MEAN CORPUSCULAR VOLUME 95 fL (79-100); MONO # 1.6 x10^3/uL (0.0-1.1); MONO % 12 % (0-9); NEUT # 10.5 x10^3uL (1.8-7.7); NEUT % 79 % (31-73); PLATELET COUNT 391 x10^3/uL (140-400); RED BLOOD COUNT 4.18 x10^6/uL (3.50-5.40); RED CELL DISTRIBUTION WIDTH 15.1 % (11.5-14.5); WHITE BLOOD COUNT 13.3 x10^3/uL (4.0-11.0)
[2019-06-17 12:17] LABS: CALCIUM 9.4 mg/dL (8.5-10.1); CREATININE 1.1 mg/dL (0.6-1.0); GFR 47.4; POTASSIUM 3.2 mmol/L (3.5-5.1)
--- NOTE | 2019-06-17 12:21 | EKG ---
[address] [address] Test Date: 2019-06-17 Test Time: 11:58:38 Pat Name: CHRISTY HSU Department: Room: Gender: F Photographers' Model: : [id number] Requested By: SAÚL RODRIGUEZ Order Number: [id number] Reading MD: Measurements Intervals [place] Rate: 64 P: -4 SD: 158 QRS: 32 QRSD: 84 T: -11 QT: 426 QTc: 444 Interpretive Statements SINUS RHYTHM T ABNORMALITY IN ANTEROLATERAL LEADS INFEROLATERAL LEADS ABNORMAL ECG RI6.01 No previous ECG available for comparison
[2019-06-17 12:22] LABS: ALBUMIN 3.6 g/dL (3.4-5.0); MAGNESIUM 2.3 mg/dL (1.8-2.4); TOTAL BILIRUBIN 0.5 mg/dL (0.2-1.0); TOTAL PROTEIN 7.3 g/dL (6.4-8.2)
[2019-06-17 14:35] LABS: BILIRUBIN,URINE SMALL (NEG); CLARITY,URINE HAZY; COLOR,URINE AMBER; GLUCOSE,URINE NEG (NEG); NITRITE,URINE NEG (NEG); UROBILINOGEN,URINE 0.2 mg/dL (0.2 mg/dL)
[2019-06-17 14:36] LABS: BACTERIA,URINE MOD /HPF (0-FEW); SQUAMOUS EPITHELIAL CELL,UR FEW /LPF
[2019-06-17 14:37] LABS: AMORPHOUS SEDIMENT,UR PRESENT /HPF; GRANULAR CASTS,URINE OCC /HPF; HYALINE CASTS, URINE FEW /HPF
[2019-06-17] MEDS ORDERED: ONDANSETRON PF 4 MG/2 ML VIAL. IV PRN (15:00)
[2019-06-17] MEDS ORDERED: cefTRIAXone SODIUM 1 GM VIAL ONE (15:06)
[2019-06-17] MEDS ORDERED: IV NORMAL SALINE 50ML 50 ML ONE (15:06)
[2019-06-17 15:48] VITALS: BP 135/75
--- NOTE | 2019-06-17 16:35 | NUR ---
NURSING NOTE ADMIT PT ADMIT FROM ED TO ROOM 125 FOR DX OF UTI AND WEAKNESS. PT STATES SHE IS CURRENTLY BETWEEN MOVING FROM HER [place]. PT STATES SHE HAS BEEN WEAK LATELY AND THAT SHE IS MOVING TO THE SECOND FLOOR SO SHE CAN WORK ON GOING UP AND DOWN THE STAIRS. PT IS CURRENTLY X2 ASSIST TO BEDSIDE COMMODE IN ED. PT RESTING IN BED AT THIS TIME. PT DENIES HAVING A MEDICATION LIST AND STATES "YOU HAVE MY MEDS HERE". SAL DOS SANTOS.
[2019-06-17] MEDS ORDERED: ALBUTEROL SULFATE 2.5 MG/3 ML NEBU. INH PRN (18:15)
[2019-06-17] MEDS: IV NORMAL SALINE 1,000ML 1,000 ML IV SCH (18:21)
[2019-06-17 19:37] VITALS: BP 98/59
[2019-06-17] MEDS: GABAPENTIN 300 MG CAPSULE. PO SCH (20:37)
[2019-06-17] MEDS: CYCLOBENZAPRINE 10 MG TABLET. PO SCH (20:37)
[2019-06-17] MEDS ORDERED: POTASSIUM CHLORIDE 20 MEQ TABLET.ER. PO ONE (21:00)
[2019-06-17] MEDS ORDERED: ZOLPIDEM 5 MG TABLET. PO PRN (21:00)
--- NOTE | 2019-06-17 21:17 | NUR ---
Pt given bed bath x2 assist, able to turn [id number] with frequent direction. Gown and linens changed. Pt A/Ox3, hyperverbal and forgetful at times. Repetitive with stories regarding family members. Pt currently awake in bed, sipping water. Call light in reach.
[2019-06-17 23:20] VITALS: BP 129/69
[2019-06-18 05:47] VITALS: BP 114/57
[2019-06-18] MEDS: clonazePAM 0.5 MG TABLET PO PRN (06:06)
--- NOTE | 2019-06-18 06:19 | NUR ---
Pt intermittently yelling out. Refusing to get up to toilet. Aware of when she needs to void, and wets the bed then calls staff in to change her. States, "I'm too weak right now, I'll get up later." Irritable while providing cares, requires frequent encouragement to follow directions. PRN clonazepam given as indicated.
[2019-06-18 06:38] LABS: HEMATOCRIT 32.9 % (36.0-47.0); HEMOGLOBIN 10.7 g/dL (12.0-15.5); RED BLOOD COUNT 3.49 x10^6/uL (3.50-5.40); RED CELL DISTRIBUTION WIDTH 14.7 % (11.5-14.5)
[2019-06-18 06:41] LABS: CREATININE 0.9 mg/dL (0.6-1.0); GFR 59.8; POTASSIUM 3.5 mmol/L (3.5-5.1)
--- NOTE | 2019-06-18 07:42 | NUR ---
NURSING NOTE CONSULT CONSULT CARDIOLOGY CALLED THIS AM TO [facility] FOR TACHYCARDIA. 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 SAL DOS SANTOS.
[2019-06-18] MEDS: SERTRALINE 25 MG TABLET. PO SCH (07:53)
[2019-06-18] MEDS: GABAPENTIN 300 MG CAPSULE. PO SCH ×4 (07:53→20:08)
[2019-06-18] MEDS: IV NORMAL SALINE 1,000ML 1,000 ML IV SCH ×2 (07:53→22:27)
[2019-06-18] MEDS: CYCLOBENZAPRINE 10 MG TABLET. PO SCH ×3 (07:54→20:09)
[2019-06-18] MEDS: LEVOTHYROXINE 88 MCG TABLET PO SCH (07:55)
--- NOTE | 2019-06-18 08:31 | PDOC2 ---
CINDI OSWALD MECHANICAL INTEGRITY SPECIALIST 06/18/19 0831: CARDIAC CONSULT DATE OF CONSULT Date Of Consult DATE: 06/18/19 TIME: 08:29 REASON FOR CONSULT Reason for Consult tachycardia REFERRING PHYSICIAN Referring Physician Dr. Hood SOURCE Source: Chart review, Patient HPI History of Present Illness This is an 84 yo female who presented for psychiatric evaluation. Per chart review, family calls police frequently for well fair checks. Per patient, she has a restraining order against her granddaughter and her who used to live with the patient. They called the police to assist them in getting a few belonging from her home. Patient reports she was cleaning on the floor when they arrived. He back was hurting so she had laid down on the floor. Policed were concerned about her well being and her home was reportedly in disarray so EMS was called for assistance and patient was brought into the ED for further evaluation and treatment. She was noted with intermittent AFIB with RVR overnight, which prompted this consult. She denies any complaints including chest pain, palpitations, dizziness, diaphoresis, or SOA. Reports h/o irregular heart rhythm in 2015 following back surgery. Patient was reportedly at [facility] and recently. Was discharge to [facility] in April, but reportedly check herself out and went home. PAST MEDICAL HISTORY Cardiovascular: AFIB, HTN Pulmonary: COPD Psych: Depression Musculoskeletal: Other (DDD) Rheumatologic: Fibromyalgia Endocrine: Hypothyroidism PAST SURGICAL HISTORY Past Surgical History: Cholecystectomy, Tonsillectomy, Other (left shoulder surgery) FAMILY HISTORY Family History: Hypertension SOCIAL HISTORY Smoke: No ALCOHOL: none Drugs: None Lives: Friends CURRENT MEDICATIONS Current Medications Current Medications Ceftriaxone Sodium 1 gm/ Sodium Chloride 50 ml @ 100 mls/hr 1X ONCE IV Last administered on 06/17/19at 15:14; Start 06/17/19 at 15:15; Stop 06/17/19 at 15:44; Status DC Ondansetron HCl (Zofran) 4 mg PRN Q4HRS PRN IV NAUSEA/VOMITING Last administered on 06/17/19at 15:14; Start 06/17/19 at 15:00; Stop 06/18/19 at 14:59 Sodium Chloride 50 ml @ As Directed STK-MED ONCE .ROUTE ; Start 06/17/19 at 15:06; Stop 06/17/19 at 15:06; Status DC Ceftriaxone Sodium (Rocephin) 1 gm STK-MED ONCE .ROUTE ; Start 06/17/19 at 15:06; Stop 06/17/19 at 15:06; Status DC Albuterol Sulfate (Ventolin) 2.5 mg PRN Q6HRS PRN INH WHEEZING; Start 06/17/19 at 18:15 Clonazepam (KlonoPIN) 0.5 mg PRN BID PRN PO ANXIETY / AGITATION Last administered on 06/18/19at 06:06; Start 06/17/19 at 18:15 Gabapentin (Neurontin) 300 mg QID PO Last administered on 06/18/19at 07:53; Start 06/17/19 at 21:00 Levothyroxine Sodium (Synthroid) 88 mcg DAILY06 PO Last administered on 06/18/19at 07:55; Start 06/18/19 at 09:00 Losartan Potassium (Cozaar) 25 mg DAILY PO ; Start 06/18/19 at 09:00 Sertraline HCl (Zoloft) 25 mg DAILY PO Last administered on 06/18/19at 07:53; Start 06/18/19 at 09:00 Cyclobenzaprine HCl (Flexeril) 5 mg TID PO Last administered on 06/18/19at 07:54; Start 06/17/19 at 21:00 Zolpidem Tartrate (Ambien) 5 mg PRN QHS PRN PO INSOMNIA MRX 1; Start 06/17/19 at 21:00 Ceftriaxone Sodium 1 gm/ Sodium Chloride 50 ml @ 100 mls/hr Q24H IV ; Start 06/18/19 at 15:00 Sodium Chloride 1,000 ml @ 75 mls/hr [id number] IV Last administered on 06/18/19at 07:53; Start 06/17/19 at 18:15 Potassium Chloride (Klor-Con) 40 meq 1X ONCE PO Last administered on 06/17/19at 20:38; Start 06/17/19 at 21:00; Stop 06/17/19 at 21:01; Status DC Active Scripts Active Clonazepam 0.5 Mg Tablet 1 Tab PO BID PRN Proair Hfa Inhaler (Albuterol Sulfate) 8.5 Gm Hfa.aer.ad 1 Puff INH PRN Q6HRS PRN Reported Losartan Potassium (Losartan Potassium) 25 Mg Tablet 25 Mg PO DAILY Sertraline Hcl 25 Mg Tablet 25 Mg PO DAILY Gabapentin 300 Mg Capsule 300 Mg PO QID Cyclobenzaprine Hcl 5 Mg Tablet 5 Mg PO TID Zolpidem Tartrate 10 Mg Tablet 10 Mg PO QHS Levothyroxine Sodium 88 Mcg Tablet 88 Mcg PO DAILY ALLERGIES Allergies: Coded Allergies: diphenhydramine (Verified Allergy, Unknown, 08/13/16) meperidine (Verified Allergy, Unknown, 08/13/16) trazodone (Verified Allergy, Unknown, 08/13/16) ROS Review of Systems 14 point ROS conducted with pertinent positives noted above in hPI PHYSICAL EXAM General: Alert, Oriented X3, Cooperative, No acute distress HEENT: Atraumatic Lungs: Clear to auscultation, Normal air movement Heart: Regular rate Abdomen: Soft, No tenderness Extremities: No edema, Normal pulses Skin: No breakdown Neuro: Normal speech, Sensation intact Psych/Mental Status: Mental status NL, Mood NL MUSCULOSKELETAL: Osteoarthritic changes both hands VITALS Vital Signs Vital Signs Date Time Temp Pulse Resp B/P (MAP) Pulse Ox O2 Delivery O2 Flow Rate FiO2 06/18/19 07:59 66 114/57 06/18/19 05:47 97.4 16 97 Room Air LABS LABS Laboratory Tests Test 06/17/19 11:45 06/17/19 13:30 06/18/19 06:20 06/18/19 07:22 White Blood Count 13.3 x10^3/uL (4.0-11.0) 11.0 x10^3/uL (4.0-11.0) Red Blood Count 4.18 x10^6/uL (3.50-5.40) 3.49 x10^6/uL (3.50-5.40) Hemoglobin 12.8 g/dL (12.0-15.5) 10.7 g/dL (12.0-15.5) Hematocrit 39.6 % (36.0-47.0) 32.9 % (36.0-47.0) Mean Corpuscular Volume 95 fL (79-100) 94 fL (79-100) Mean Corpuscular Hemoglobin 31 pg (25-35) 31 pg (25-35) Mean Corpuscular Hemoglobin Concent 32 g/dL (31-37) 33 g/dL (31-37) Red Cell Distribution Width 15.1 % (11.5-14.5) 14.7 % (11.5-14.5) Platelet Count 391 x10^3/uL (140-400) 320 x10^3/uL (140-400) Neutrophils (%) (Auto) 79 % (31-73) Lymphocytes (%) (Auto) 8 % (24-48) Monocytes (%) (Auto) 12 % (0-9) Eosinophils (%) (Auto) 0 % (0-3) Basophils (%) (Auto) 1 % (0-3) Neutrophils # (Auto) 10.5 x10^3uL (1.8-7.7) Lymphocytes # (Auto) 1.1 x10^3/uL (1.0-4.8) Monocytes # (Auto) 1.6 x10^3/uL (0.0-1.1) Eosinophils # (Auto) 0.0 x10^3/uL (0.0-0.7) Basophils # (Auto) 0.1 x10^3/uL (0.0-0.2) Sodium Level 144 mmol/L (136-145) 141 mmol/L (136-145) Potassium Level 3.2 mmol/L (3.5-5.1) 3.5 mmol/L (3.5-5.1) Chloride Level 105 mmol/L (98-107) 106 mmol/L (98-107) Carbon Dioxide Level 26 mmol/L (21-32) 26 mmol/L (21-32) Anion Gap 13 (6-14) 9 (6-14) Blood Urea Nitrogen 26 mg/dL (7-20) 24 mg/dL (7-20) Creatinine 1.1 mg/dL (0.6-1.0) 0.9 mg/dL (0.6-1.0) Estimated GFR (Cockcroft-Gault) 47.4 59.8 BUN/Creatinine Ratio 24 (6-20) Glucose Level 113 mg/dL (70-99) 102 mg/dL (70-99) Calcium Level 9.4 mg/dL (8.5-10.1) 8.0 mg/dL (8.5-10.1) Magnesium Level 2.3 mg/dL (1.8-2.4) Iron Level 26 ug/dL (50-170) Total Iron Binding Capacity 154 ug/dL (250-450) Iron Saturation 17 % (15-34) Total Bilirubin 0.5 mg/dL (0.2-1.0) Aspartate Amino Transf (AST/SGOT) 41 U/L (15-37) Alanine Aminotransferase (ALT/SGPT) 45 U/L (14-59) Alkaline Phosphatase 90 U/L (46-116) Total Protein 7.3 g/dL (6.4-8.2) Albumin 3.6 g/dL (3.4-5.0) Albumin/Globulin Ratio 1.0 (1.0-1.7) Urine Collection Type Unknown Urine Color [place]abila Urine Clarity Hazy Urine pH 6.0 Urine Specific [place] >=1.030 Urine Protein 30 mg/dl (NEG-TRACE) Urine Glucose (UA) Neg mg/dL (NEG) Urine Ketones (Stick) 15 mg/dL (NEG) Urine Blood Neg (NEG) Urine Nitrite Neg (NEG) Urine Bilirubin Small (NEG) Urine Urobilinogen Dipstick 0.2 mg/dL (0.2 mg/dL) Urine Leukocyte Esterase Neg (NEG) Urine RBC 1-2 /HPF (0-2) Urine WBC 5-10 /HPF (0-4) Urine Squamous Epithelial Cells Few /LPF Urine Transitional Epithelial Cells Occ /LPF Urine Amorphous Sediment Present /HPF Urine Bacteria Mod /HPF (0-FEW) Urine Hyaline Casts Few /HPF Urine Granular Casts Occ /HPF Urine Mucus Marked /LPF Glucose (Fingerstick) 98 mg/dL (70-99) STRESS TEST Stress Test 09/10/15 - Procedure: GATED D-SPECT REGADENOSON THALLIUM MPI STRESS TEST FINDINGS: Pharmacological Stress Electrocardiogram:The patient's resting heart rate was 60 bpm and the resting blood pressure was 156/81. The patients peak stress heart rate was 96 bpm and the peak stress blood pressure was 147/84. The patient experienced nausea and chest pain. The resting ECG shows Normal sinus rhythm. Following Regadenoson infusion there are no new diagnostic ECG changes. Conclusion: Pharmacologic stress ECG is negative for ischemia. Npvqwktkm-fi-Wmfhizjknk Count Ratio: 0.25 (normal = or < 0.52). ASSESSMENT/PLAN Assessment/Plan 1. Weakness, chronic pain 2. PAFIB; intermittent RVR overnight. Presently SR with controlled rate. Presume h/o AFIB; patient reports h/o irregular heart rhythm following back surgery in 2016 3. Hypertension; low end 4. JAYCE, dehydration; improved with IVFs 5. Possible UTI 6. Depression, bipolar Recommendations Discontinue losartan. Will start low-dose Cardizem for rate control Lipids, TSH Echo to assess LV systolic function Add ASA for stroke prophylaxis for now Consider outpatient event monitor to guide therapy if patient will comply. ALESIA AN MD 06/18/19 1654: CARDIAC CONSULT ASSESSMENT/PLAN Assessment/Plan Pt. seen and examined. Agree with above CROZE MACHINE OPERATOR note. Supportive care. Thanks CINDI OSWALD APRN Jun 18, 2019 08:31 ALESIA AN MD Jun 18, 2019 16:54
[2019-06-18] MEDS ORDERED: LOSARTAN 25 MG TABLET. PO SCH (09:00)
[2019-06-18] MEDS: ASPIRIN ENTERIC COATED 81 MG TABLET.DR. PO SCH (09:24)
[2019-06-18 10:38] VITALS: BP 104/66
--- NOTE | 2019-06-18 13:00 | NUR ---
NURSING NOTE PT WAS UP IN HER CHAIR MOST OF THE MORNING BEFORE LUNCH AFTER WORKING WITH PT AND OT. PT C/O SHOULDER PAIN 5 AND STATES SHE IS HAVING TROUBLE MOVING HER SHOULDER. PT STATES SHE CAN MOVE HER RIGHT ARM UP AND DOWN BUT HER LEFT ARM SHE CANNOT LIFT UP MUCH AND IT CAUSES HER PAIN. PT DENIES ANY FALLS AT HOME AND STATES SHE HAS HAD A FEW SURGICAL REPAIRS IN THE PAST TO HER SHOULDER. DR SEGURA NOTIFIED, ORDERS OBTAINED FOR RIB XRAYS AND LEFT SHOULDER. WILL CONTINUE TO MONITOR. SAL DOS SANTOS.
[2019-06-18 13:30] LABS: THYROID STIM HORMONE (TSH) 11.462 uIU/mL (0.358-3.740)
--- NOTE | 2019-06-18 14:15 | HP ---
ADMIT DATE: 06/17/2019 HISTORY OF PRESENT ILLNESS: The patient is an 84-year-old female patient, who was brought to the Emergency Room by emergency medical service personnel for possible psychiatric evaluation. Apparently, the police came to her house and found her to be in great disarray and the last time they visited the patient's house was in April. They called paramedics to have the patient evaluated. The patient has been in the hospital in the last couple of months for psychiatric evaluation. She does not know the result of these. The patient told the ER physician that she is having some back pain and laid down on the floor while she was cleaning. She denied any fall or injury. While in the Emergency Room, she denied any complaint, especially has no significant pain anywhere. Apparently, her house has been condemned and her children are moving her to [facility]. She was extensively evaluated in the Emergency Room and was found to have UTI and therefore, she was admitted to [address] [place] [address] for medical stabilization before she is transferred to [facility] for inpatient psychiatric stabilization. PAST MEDICAL HISTORY: Significant for type 2 diabetes mellitus, hypertension, chronic kidney disease, hypothyroidism, chronic obstructive pulmonary disease, osteoarthritis, and rheumatoid arthritis. PAST SURGICAL HISTORY: Significant for left rotator cuff repair and 2 left reverse shoulder replacement therapy. She underwent tonsillectomy, adenoidectomy, cholecystectomy, breast reduction surgery, and back surgery. ALLERGIES: SHE IS ALLERGIC TO DIPHENHYDRAMINE, MEPERIDINE, AND TRAZODONE. FAMILY HISTORY: Significant for the fact that she has 2 brothers, 1 older and and one younger, still alive and healthy. She has 2 older sisters, one younger sister who is seemingly healthy. Her father at the age of 90 and mother at age of 80 with Alzheimer disease. SOCIAL HISTORY: She is . She was 3 times. She has 2 sons and 1 daughter, one daughter was stillborn. She quit smoking and drinking alcohol in 1967. She is retired, was working at a [employer]. REVIEW OF SYSTEMS: As per history of present illness. MEDICATIONS: She was on following medications: Albuterol sulfate 1 puff every 6 hours, cyclobenzaprine 5 mg 3 times a day, losartan potassium 25 mg daily, clonazepam 0.5 mg twice a day, gabapentin 300 mg 4 times a day, sertraline 25 mg daily, Ambien 10 mg at bedtime, levothyroxine sodium 88 mcg once a day. PHYSICAL EXAMINATION: GENERAL: On arrival to the Emergency Room, she looked well and was clearly in no apparent respiratory distress. No pallor, jaundice, cyanosis or thyromegaly. No jugular venous distention. No lower limb edema. VITAL SIGNS: Her heart rate was 71, blood pressure was 129/69, temperature 97.7, respiratory rate was 18 and oxygen saturation was 94%. HEAD, EYES, EARS, NOSE AND THROAT: Normocephalic, atraumatic. NECK: Supple. HEART: Showed normal first and second heart sounds. No gallop, rub or murmur. CHEST: Clear to auscultation. No crepitation or rhonchi. ABDOMEN: Distended, soft, nontender. NEUROLOGIC: She was awake, alert, responding appropriately. All cranial nerves intact. EXTREMITIES: She moves extremities without difficulty. LABORATORY DATA: On admission showed a white cell count of 13,300, hemoglobin 12.8, hematocrit 39, MCV 95, and platelet count 391,000. Her chemistry showed a serum sodium 144, potassium 3.2, chloride 105, bicarbonate 26, anion gap of 13, BUN 26, creatinine 1.1, estimated GFR was 47 mL per minute. Her glucose 113, calcium was 9.4, magnesium 2.3. Her serum iron, TIBC and iron saturation are all low. Total bilirubin 0.5. AST, ALT, alkaline phosphatase are normal. Total protein 7.3, albumin 3.6. Urinalysis showed the urine was michelle, hazy with a pH of 6, specific gravity of 1.030, small amount of protein, negative for glucose, small amount of ketones, negative for nitrites, small amount of leukocyte esterase, 1-2 rbc's, 5-10 wbc's, and moderate amount of bacteria. ASSESSMENT AND PLAN: In summary, this is an 84-year-old female patient who was admitted with generalized weakness. She also have possible UTI and hypokalemia together with bipolar affective disorder. PLAN: She was started on IV Rocephin 1 gram IV daily. Continue all her other medications. We will evaluate her on a daily basis and decide on further management accordingly. CARLOS SEGURA MD DR: KATTY/aidee JOB#: [id number] / [id number]
[2019-06-18 16:02] VITALS: BP 120/62
--- NOTE | 2019-06-18 17:18 | RAD ---
Left rib radiographs History: Severe pain, history of shoulder replacement Comparison: April 10, 2019 chest radiograph Findings: 3 views of the left ribs are submitted. No dedicated chest radiograph was obtained with this exam. Right hemithorax is not evaluated. There is left shoulder arthroplasty as seen previously. There is no left pneumothorax, lobar consolidation, or significant pleural fluid. There is slightly displaced fracture of the left lateral fifth rib. There is again widening of the left acromioclavicular distance. Impression: 1. There is slightly displaced left lateral fifth rib fracture. Electronically signed by: Silvio Garland MD (06/18/2019 5:15 PM) [id number]
--- NOTE | 2019-06-18 17:22 | RAD ---
SHOULDER 2+V LEFT History: Severe pain, history of left shoulder replacement Comparison: December 25, 2017 Findings: 3 views of the left shoulder are submitted. There is now left total shoulder arthroplasty. Alignment is within normal limits. As seen on recent radiographs, there is slightly displaced left lateral fifth rib fracture. Impression: 1. There is left shoulder arthroplasty. 2. There is slightly displaced left lateral fifth rib fracture. Electronically signed by: Silvio Garland MD (06/18/2019 5:19 PM) [id number]
--- NOTE | 2019-06-18 17:43 | NUR ---
NURSING NOTE TELEMETRY PT HAS REMOVED HER TELE MONITOR SEVERAL TIMES THROUGHOUT THE DAY. PT STATES THEY ITCH HER. SKIN IS INTACT. NO IRRITATION NOTED THUS FAR. MOVED PADS AROUND TO DIFFERENT SPOTS TO PREVENT IRRITATION. ENCOURAGING PT TO WEAR HER MONITOR. WILL CONTINUE TO MONITOR. SAL DOS SANTOS.
[2019-06-18] MEDS: LACTOBACILLUS RHAMNOSUS GG 1 CAPSULE. PO SCH (20:08)
[2019-06-18 20:56] VITALS: BP 132/72
--- NOTE | 2019-06-18 22:25 | PN ---
DATE: SUBJECTIVE: The patient is an 84-year-old female patient who was admitted yesterday with weakness, bipolar disorder and acute kidney injury as well as hypokalemia. She was started on IV Rocephin, and this morning, she actually was able to get up and walk with physical therapy; however, when I saw her this afternoon, she was complaining of severe pain in her left shoulder and left side of the chest, aggravated by any movement. PHYSICAL EXAMINATION: GENERAL: When I examined her, she looked well and was clearly in no apparent respiratory distress. No pallor, jaundice, cyanosis or thyromegaly. No jugular venous distention. No limb edema. VITAL SIGNS: Her heart rate was 104, blood pressure was 104/66, temperature was 98.3, respiratory rate 20, and oxygen saturation was 92%. HEAD, EYES, EARS, NOSE AND THROAT: Showed normocephalic, atraumatic. NECK: Supple. HEART: Showed normal first and second heart sounds. No gallop, rub or murmur. CHEST: Clear to auscultation. No crepitation or rhonchi. ABDOMEN: Distended, soft, nontender. NEUROLOGIC: She is awake, alert, responding appropriately. All cranial nerves intact. She moves her right upper extremity and both lower extremities without difficulty. She has marked limitation of movement to her left upper extremity and marked tenderness in the left shoulder and left side of the chest. Her intake was 614, no output was recorded. LABORATORY DATA: Her lab work this morning showed her white cell count to be 11,000, hemoglobin 10.7, hematocrit 32.9, MCV 94 and platelet count of 320,000. Her chemistry showed a serum sodium 141, potassium 3.5, chloride 106, bicarbonate 26, anion gap of 9, BUN 24, creatinine 0.9, estimated GFR was 59 mL per minute. Her glucose 102, calcium was 8. ASSESSMENT: 1. Severe pain with marked limitation of movement to the left shoulder and severe pain in the left side of the chest for which we will arrange for x-ray of the left shoulder and left-sided rib views. 2. Possible urinary tract infection for which she is on Rocephin. 3. Paroxysmal atrial fibrillation, rate controlled. 4. Acute kidney injury, improving. 5. Hypokalemia, improving. 6. Depression, possible bipolar. PLAN: To continue with antibiotic. I will arrange for her to have x-ray of her left shoulder and left side rib view and decide further management accordingly. CARLOS SEGURA MD DR: KATTY/aidee JOB#: [id number] / [id number]
[2019-06-18] MEDS: ACETAMINOPHEN 325 MG TABLET PO PRN (22:28)
[2019-06-18 23:37] VITALS: BP 138/75
[2019-06-19] MEDS: LEVOTHYROXINE 88 MCG TABLET PO SCH (05:08)
[2019-06-19 05:57] VITALS: BP 151/81
[2019-06-19 06:51] LABS: HEMATOCRIT 32.3 % (36.0-47.0); HEMOGLOBIN 10.5 g/dL (12.0-15.5); RED BLOOD COUNT 3.39 x10^6/uL (3.50-5.40)
[2019-06-19 07:08] LABS: ALBUMIN 2.7 g/dL (3.4-5.0); ALBUMIN/GLOBULIN RATIO 0.8 (1.0-1.7); C REACTIVE PROTEIN 31.5 mg/L (0-3.3); CREATININE 0.9 mg/dL (0.6-1.0); GFR 59.8; POTASSIUM 3.7 mmol/L (3.5-5.1); TOTAL BILIRUBIN 0.2 mg/dL (0.2-1.0); TOTAL PROTEIN 5.9 g/dL (6.4-8.2)
--- NOTE | 2019-06-19 07:51 | PDOC ---
CARDIO Progress Notes Date & Time Date of Service DATE: 06/19/19 TIME: 07:48 Time of Evaluation 07:48 Subjective Notes No chest pain, palpitations, dizziness, diaphoresis, or nausea/vomiting. Vitals Vitals Vital Signs Date Time Temp Pulse Resp B/P (MAP) Pulse Ox O2 Delivery O2 Flow Rate FiO2 06/19/19 05:57 98.0 66 18 151/81 (104) 94 Room Air Weight Weight [ ] Input and Output I.O. Intake and Output 06/19/19 07:00 Intake Total 2077 ml Balance 2077 ml Intake Oral 960 ml IV Total 1117 ml # Voids 2 Laboratory Labs Laboratory Tests Test 06/17/19 11:45 06/17/19 13:30 06/18/19 06:20 06/18/19 07:22 White Blood Count 13.3 x10^3/uL (4.0-11.0) 11.0 x10^3/uL (4.0-11.0) Red Blood Count 4.18 x10^6/uL (3.50-5.40) 3.49 x10^6/uL (3.50-5.40) Hemoglobin 12.8 g/dL (12.0-15.5) 10.7 g/dL (12.0-15.5) Hematocrit 39.6 % (36.0-47.0) 32.9 % (36.0-47.0) Mean Corpuscular Volume 95 fL (79-100) 94 fL (79-100) Mean Corpuscular Hemoglobin 31 pg (25-35) 31 pg (25-35) Mean Corpuscular Hemoglobin Concent 32 g/dL (31-37) 33 g/dL (31-37) Red Cell Distribution Width 15.1 % (11.5-14.5) 14.7 % (11.5-14.5) Platelet Count 391 x10^3/uL (140-400) 320 x10^3/uL (140-400) Neutrophils (%) (Auto) 79 % (31-73) Lymphocytes (%) (Auto) 8 % (24-48) Monocytes (%) (Auto) 12 % (0-9) Eosinophils (%) (Auto) 0 % (0-3) Basophils (%) (Auto) 1 % (0-3) Neutrophils # (Auto) 10.5 x10^3uL (1.8-7.7) Lymphocytes # (Auto) 1.1 x10^3/uL (1.0-4.8) Monocytes # (Auto) 1.6 x10^3/uL (0.0-1.1) Eosinophils # (Auto) 0.0 x10^3/uL (0.0-0.7) Basophils # (Auto) 0.1 x10^3/uL (0.0-0.2) Sodium Level 144 mmol/L (136-145) 141 mmol/L (136-145) Potassium Level 3.2 mmol/L (3.5-5.1) 3.5 mmol/L (3.5-5.1) Chloride Level 105 mmol/L (98-107) 106 mmol/L (98-107) Carbon Dioxide Level 26 mmol/L (21-32) 26 mmol/L (21-32) Anion Gap 13 (6-14) 9 (6-14) Blood Urea Nitrogen 26 mg/dL (7-20) 24 mg/dL (7-20) Creatinine 1.1 mg/dL (0.6-1.0) 0.9 mg/dL (0.6-1.0) Estimated GFR (Cockcroft-Gault) 47.4 59.8 BUN/Creatinine Ratio 24 (6-20) Glucose Level 113 mg/dL (70-99) 102 mg/dL (70-99) Calcium Level 9.4 mg/dL (8.5-10.1) 8.0 mg/dL (8.5-10.1) Magnesium Level 2.3 mg/dL (1.8-2.4) Iron Level 26 ug/dL (50-170) Total Iron Binding Capacity 154 ug/dL (250-450) Iron Saturation 17 % (15-34) Total Bilirubin 0.5 mg/dL (0.2-1.0) Aspartate Amino Transf (AST/SGOT) 41 U/L (15-37) Alanine Aminotransferase (ALT/SGPT) 45 U/L (14-59) Alkaline Phosphatase 90 U/L (46-116) Total Protein 7.3 g/dL (6.4-8.2) Albumin 3.6 g/dL (3.4-5.0) Albumin/Globulin Ratio 1.0 (1.0-1.7) Urine Collection Type Unknown Urine Color Nabila Urine Clarity Hazy Urine pH 6.0 Urine Specific Kenneth >=1.030 Urine Protein 30 mg/dl (NEG-TRACE) Urine Glucose (UA) Neg mg/dL (NEG) Urine Ketones (Stick) 15 mg/dL (NEG) Urine Blood Neg (NEG) Urine Nitrite Neg (NEG) Urine Bilirubin Small (NEG) Urine Urobilinogen Dipstick 0.2 mg/dL (0.2 mg/dL) Urine Leukocyte Esterase Neg (NEG) Urine RBC 1-2 /HPF (0-2) Urine WBC 5-10 /HPF (0-4) Urine Squamous Epithelial Cells Few /LPF Urine Transitional Epithelial Cells Occ /LPF Urine Amorphous Sediment Present /HPF Urine Bacteria Mod /HPF (0-FEW) Urine Hyaline Casts Few /HPF Urine Granular Casts Occ /HPF Urine Mucus Marked /LPF Triglycerides Level 49 mg/dL (0-150) Cholesterol Level 109 mg/dL (0-200) LDL Cholesterol, Calculated 48 mg/dL (0-100) VLDL Cholesterol, Calculated 9 mg/dL (0-40) Non-HDL Cholesterol Calculated 57 mg/dL (0-129) HDL Cholesterol 52 mg/dL (40-60) Cholesterol/HDL Ratio 2.0 Thyroid Stimulating Hormone (TSH) 11.462 uIU/mL (0.358-3.740) Glucose (Fingerstick) 98 mg/dL (70-99) Test 06/19/19 06:30 06/19/19 06:35 Sodium Level 140 mmol/L (136-145) Potassium Level 3.7 mmol/L (3.5-5.1) Chloride Level 106 mmol/L (98-107) Carbon Dioxide Level 25 mmol/L (21-32) Anion Gap 9 (6-14) Blood Urea Nitrogen 20 mg/dL (7-20) Creatinine 0.9 mg/dL (0.6-1.0) Estimated GFR (Cockcroft-Gault) 59.8 BUN/Creatinine Ratio 22 (6-20) Glucose Level 97 mg/dL (70-99) Calcium Level 8.0 mg/dL (8.5-10.1) Total Bilirubin 0.2 mg/dL (0.2-1.0) Aspartate Amino Transf (AST/SGOT) 21 U/L (15-37) Alanine Aminotransferase (ALT/SGPT) 29 U/L (14-59) Alkaline Phosphatase 77 U/L (46-116) C-Reactive Protein 31.5 mg/L (0-3.3) Total Protein 5.9 g/dL (6.4-8.2) Albumin 2.7 g/dL (3.4-5.0) Albumin/Globulin Ratio 0.8 (1.0-1.7) White Blood Count 10.0 x10^3/uL (4.0-11.0) Red Blood Count 3.39 x10^6/uL (3.50-5.40) Hemoglobin 10.5 g/dL (12.0-15.5) Hematocrit 32.3 % (36.0-47.0) Mean Corpuscular Volume 95 fL (79-100) Mean Corpuscular Hemoglobin 31 pg (25-35) Mean Corpuscular Hemoglobin Concent 33 g/dL (31-37) Red Cell Distribution Width 15.0 % (11.5-14.5) Platelet Count 279 x10^3/uL (140-400) Physical Exams HEENT: Neck Supple W Full Motion Chest: Symmetric Lungs: Clear to Auscultation Heart: S1S2, RRR Abdomen: Soft N/T Extremities: No Edema Neurology: alert, oriented, follow commands Assessment Assessment 1. Weakness, chronic pain 2. PAFIB; Has been maintaining SR for over 24 hrs now. 3. Hypertension; controlled 4. JAYCE, dehydration; improved with IVFs 5. Possible UTI 6. Depression, bipolar 7. Hypothyroidism; as per PCP Recommendations Continue Cardizem for rate control Echo to assess LV systolic function today Add ASA for stroke prophylaxis for now Consider outpatient event monitor to guide therapy if patient will comply. This will also depend upon her disposition upon discharge. CINDI OSWALD APRN Jun 19, 2019 07:51
[2019-06-19] MEDS: ASPIRIN ENTERIC COATED 81 MG TABLET.DR. PO SCH (08:14)
[2019-06-19] MEDS: CYCLOBENZAPRINE 10 MG TABLET. PO SCH ×4 (08:14→23:25)
[2019-06-19] MEDS: SERTRALINE 25 MG TABLET. PO SCH (08:14)
[2019-06-19] MEDS: ACETAMINOPHEN 325 MG TABLET PO PRN (08:15)
[2019-06-19] MEDS: GABAPENTIN 300 MG CAPSULE. PO SCH ×5 (08:15→23:24)
[2019-06-19] MEDS: LACTOBACILLUS RHAMNOSUS GG 1 CAPSULE. PO SCH ×3 (08:15→23:24)
[2019-06-19] MEDS: IV NORMAL SALINE 1,000ML 1,000 ML IV SCH ×2 (10:15→23:35)
[2019-06-19 10:54] VITALS: BP 146/75
--- NOTE | 2019-06-19 14:20 | CARD ---
MR#: [id number] Date of Study: 06/19/2019 Ordering Physician: CINDI OSWALD, Referring Physician: CINDI OSWALD, Tech: Dolores Bateman APPROVED REPORT EXAM: Two-dimensional and M-mode echocardiogram with Doppler and color Doppler. Other Information Quality : AverageHR: 66bpm Technically limited study due to combative patient INDICATION Atrial Fibrillation 2D DIMENSIONS Left Atrium(2D)2.7 (1.6-4.0cm)IVSd1.3 (0.7-1.1cm) Aortic Root(2D)3.6 (2.0-3.7cm)LVDd3.6 (3.9-5.9cm) LVOT Diameter1.9 (1.8-2.4cm)PWd1.2 (0.7-1.1cm) LVDs2.1 (2.5-4.0cm)FS (%) 42.2 % SV41.5 mlLVEF(%)74.1 (>50%) Aortic Valve AoV Peak Jayesh.203.1cm/sAoV VTI40.2cm AO Peak GR.16.5mmHgLVOT Peak Jayesh.115.6cm/s LVOT VTI 25.15cmAO Mean GR.9mmHg LAURYN (VMAX)1.55ed2YQM (VTI)1.83cm2 Mitral Valve MV E Dkqdgxiu027.6cm/sMV DECEL QHGB576wo MV A Ntkhgtau38.8cm/sE/A Ratio1.7 Pulmonary Valve PV Peak Bzyubsun475.4cm/sPV Peak Grad.5mmHg Tricuspid Valve TR P. Fvcuwhrc170em/sRAP SWKGIYRL2jlRy TR Peak Gr.19oiDkPYJE07cwKy Pulmonary Vein S1 Yhzzmkoj00.2cm/sD2 Nfqbrhif18.8cm/s LEFT VENTRICLE The left ventricle is normal size. There is moderate concentric left ventricular hypertrophy. The lef t ventricular systolic function is normal. The Ejection Fraction is 60-65%. There is normal LV segmen keyona wall motion. Transmitral Doppler flow pattern is Grade II-pseudonormal filling dynamics. RIGHT VENTRICLE The right ventricle is normal size. There is normal right ventricular wall thickness. The right ventr icular systolic function is normal. ATRIA The left atrium size is normal. The right atrium is borderline dilated. The interatrial septum is int act with no evidence for an atrial septal defect or patent foramen ovale as noted on 2-D or Doppler i maging. AORTIC VALVE The aortic valve is not well visualized. Doppler and Color Flow revealed no significant aortic regurg itation. There is no significant aortic valvular stenosis. MITRAL VALVE The mitral valve is normal in structure and function. There is no evidence of mitral valve prolapse. There is no mitral valve stenosis. Doppler and Color-flow revealed trace mitral regurgitation. TRICUSPID VALVE The tricuspid valve is normal in structure and function. Doppler and Color Flow revealed trace tricus pid regurgitation with an estimated PAP of 46 mmHg. There is no tricuspid valve stenosis. PULMONIC VALVE The pulmonic valve is not well visualized. Doppler and Color Flow revealed no pulmonic valvular regur gitation. GREAT VESSELS The aortic root is normal in size. The IVC is normal in size and collapses >50% with inspiration. PERICARDIAL EFFUSION There is no evidence of significant pericardial effusion. Critical Notification Critical Value: No <Conclusion> The left ventricular systolic function is normal. The Ejection Fraction is 60-65%. There is normal LV segmental wall motion. Transmitral Doppler flow pattern is Grade II-pseudonormal filling dynamics. Trace mitral regurgitation. Trace tricuspid regurgitation with an estimated PAP of 46 mmHg. There is no evidence of significant pericardial effusion. Signed by : Michael Lester, Electronically Approved : 06/19/2019 14:19:58
[2019-06-19 15:13] VITALS: BP 137/70
[2019-06-19] MEDS: clonazePAM 0.5 MG TABLET PO PRN (15:27)
[2019-06-19] MEDS: oxyCODONE IR 5 MG TABLET PO PRN (15:27)
--- NOTE | 2019-06-19 16:58 | RAD ---
CT LUMBAR SPINE WO CONTRAST History: Severe intractable pain. Technique: Noncontrast CT was performed of the lumbar spine. Multiplanar reconstructions were performed. Exposure: One or more of the following individualized dose reduction techniques were utilized for this examination: 1. Automated exposure control 2. Adjustment of the mA and/or kV according to patient size 3. Use of iterative reconstruction technique. Comparison: None Findings: Small left pleural effusion. Small hiatal hernia. Prior cholecystectomy. Colonic diverticulosis. Small left renal cyst. Grade 2 anterolisthesis L5 on S1. Posterior stabilization L4-S1. Slight lucency surrounding the right L4 and right S1 pedicle screws, may indicate loosening. Posterior decompression L5. Right L4 laminotomy and inferior facetectomy. Acute L3 inferior endplate compression fracture with 25 percent height loss. Mild retropulsion. Into minimal canal narrowing. Multilevel degenerative changes throughout the lumbar spine. Mild canal narrowing L3-L4. Severe neural foraminal narrowing L5-S1. Additional neuroforaminal narrowing. Impression: 1. Acute L3 inferior endplate compression fracture. 2. Grade 2 anterolisthesis L5 on S1 with posterior stabilization L4-S1. 3. Lucency surrounding the right L4 and right S1 pedicle screws, may indicate loosening. 4. Small left pleural effusion. Electronically signed by: Francisco Ramirez DO (06/19/2019 4:55 PM) [facility]
--- NOTE | 2019-06-19 17:48 | NUR ---
NSG NOTE; END OF SHIFT PT HAS BEEN ALERT TODAY. SHE YELLS OUT WHEN SHE NEEDS HELP TO THE BR. PT HAS ALOT OF LOWER BACK PAIN WHEN MOVING FROM LYING TO SEATED AND BACK AGAIN. BACK PAIN IS GREATLY REDUCED ONCE PT IS UP ON HER FEET OR IN THE CHAIR. DR SEGURA ORDERED LUMBAR CT WHICH SHOWS ACUTE COMPRESSION FRACTURE. HE PLANS TO TALK WITH ORTHO AT [facility] TOMORROW FOR POSSIBLE TRANSFER FOR VERTEBROPLASTY IF WARRANTED CASE MANAGEMENT TO CONSULT WITH DINORA, FUMIGATOR AND STERILIZER, FOR GUIDANCE OF FAMILY WITH POSSIBLE EMERGENCY GUARDIANSHIP PT IS NOT SAFE HOME ALONE. GRANDDAUGHTER NARGIS WHO USED TO LIVE WITH PT, WAS CLEARED OF ANY WRONGDOING BY [employer]ULT [employer]. SHE WAS HERE TODAY AND STATED THE PATIENT IS FALLING FREQUENTLY AT HOME AND THAT THE HOME IS FULL OF TRASH, FOOD AND DOG FECES. [facility] IS CURRENTLY INVESTIGATING THE PT'S ABILITY TO LIVE ALONE.
[2019-06-19 19:16] VITALS: BP 138/77
[2019-06-19 23:52] VITALS: BP 124/74
[2019-06-20] MEDS: LEVOTHYROXINE 88 MCG TABLET PO SCH (06:00)
[2019-06-20 06:06] VITALS: BP 136/70
--- NOTE | 2019-06-20 06:47 | PN ---
DATE: 06/19/2019 SUBJECTIVE: The patient is resting, slightly propped up in bed, in no apparent distress. She continued to complain of severe pain on her left side of the chest and also back pain. She is now having pain in her left shoulder. She is now able to move it slightly better. PHYSICAL EXAMINATION: GENERAL: When I examined her, she was pale. No jaundice, cyanosis or thyromegaly. No jugular venous distention or limb edema. VITAL SIGNS: Her heart rate was 74, blood pressure was 146/75, temperature was 98, respiratory rate 20 and oxygen saturation was 95%. HEAD, EYES, EARS, NOSE AND THROAT: Normocephalic, atraumatic. NECK: Supple. HEART: Showed normal first and second heart sounds. No gallop or murmur. CHEST: Clear to auscultation. No crepitation or rhonchi. ABDOMEN: Distended, soft, nontender. No guarding or rigidity. No organomegaly. All hernial orifice intact. Bowel sounds normal. NEUROLOGIC: She is awake, alert, responding appropriately. All cranial nerves intact. She moves extremities without difficulty, although she has severe pain in her back when attempting to get out of the bed to stand. Her intake over the last 24 hours was 2000 and no output was recorded. LABORATORY DATA: Showed a serum sodium 140, potassium 3.7, chloride 106, bicarbonate 25, anion gap of 9, BUN 20, creatinine 0.9, estimated GFR was 60 mL per minute. Her glucose was 97, calcium was 8. Total bilirubin, AST, ALT, alkaline phosphatase were normal. C-reactive protein was ____ 31.5 mg/dL, total protein was 5.9, albumin 2.7. Her serum triglycerides were 49, total cholesterol 109, LDL was 48, VLDL was 9, HDL was 52 and ratio was 2. Her TSH is high at 11.462. Urinalysis, her urine culture showed mixed urogenital tom of only 10,000-25,000 colony forming units/mL. ASSESSMENT: 1. Severe pain with marked limitation of movement of the left shoulder and severe pain in her left side of the chest. X-ray of the left shoulder showed that she had left total shoulder arthroplasty. Alignment is within normal limit. She does have a slightly displaced left lateral 5th rib fracture. 2. Possible urinary tract infection for which she is on Rocephin; however, her urine culture grew only 10-25,000 of urogenital tom. 3. Paroxysmal atrial fibrillation, rate controlled. 4. Acute kidney injury, improving. Her creatinine came down from 1.1 to 0.9. 5. Hypokalemia, resolved. 6. Depression, possible bipolar. PLAN: Given that the culture was negative, I would discontinue her Rocephin. We will arrange for her to have a CT scan of her lumbar spine and start her on oxycodone for pain management. CARLOS SEGURA MD DR: KATTY/aidee JOB#: [id number] / [id number]
[2019-06-20] MEDS: GABAPENTIN 300 MG CAPSULE. PO SCH (07:55)
[2019-06-20] MEDS: ASPIRIN ENTERIC COATED 81 MG TABLET.DR. PO SCH (07:55)
[2019-06-20] MEDS: oxyCODONE IR 5 MG TABLET PO PRN (07:55)
[2019-06-20] MEDS: CYCLOBENZAPRINE 10 MG TABLET. PO SCH (07:55)
[2019-06-20] MEDS: SERTRALINE 25 MG TABLET. PO SCH (07:56)
[2019-06-20] MEDS: LACTOBACILLUS RHAMNOSUS GG 1 CAPSULE. PO SCH (07:56)
[2019-06-20 11:17] VITALS: BP 126/75
--- NOTE | 2019-06-20 11:34 | NUR ---
Report called in to [facility] ROOM [id number], Report given to Yuliya HUANG. Ems called to transfer patient.
--- NOTE | 2019-06-20 11:37 | NUR ---
Called [facility], per patient request to inform family that patient is being transferred to [facility] for further treatment. No answer, this nurse left voicemail requesting for call back at 1130.
--- NOTE | 2019-06-20 13:02 | NUR ---
Discharge Note: [facility] Discharge instructions and discharge home medications reviewed with Other facility and a copy given. All questions have been answered and understanding verbalized. Patient discharged to [facility] for further treatment. Patient was discharged via EMS, accompanied by EMS personel.
== END 2019-06-20 13:03 | disposition short-term general hospital (02) | DRG 871 ==
LOC: ER 11:22 → 1 SOUTH 14:50
PROVIDERS: ADMIT Internal Medicine; ATTEND Internal Medicine
DX: A41.9 Sepsis, unspecified organism (principal); N17.0 Acute kidney failure with tubular necrosis; N39.0 Urinary tract infection, site not specified; S22.32XA Fracture of one rib, left side, initial encounter for closed fracture; E03.9 Hypothyroidism, unspecified; E11.22 Type 2 diabetes mellitus with diabetic chronic kidney disease; E86.0 Dehydration; E87.6 Hypokalemia; F31.9 Bipolar disorder, unspecified; G89.29 Other chronic pain; I12.9 Hypertensive chronic kidney disease with stage 1 through stage 4 chronic kidney disease, or unspecified chronic kidney disease; I48.0 Paroxysmal atrial fibrillation; J44.9 Chronic obstructive pulmonary disease, unspecified; M06.9 Rheumatoid arthritis, unspecified; F41.9 Anxiety disorder, unspecified; M19.90 Unspecified osteoarthritis, unspecified site; M79.7 Fibromyalgia; N18.9 Chronic kidney disease, unspecified; Z90.49 Acquired absence of other specified parts of digestive tract; X58.XXXA Exposure to other specified factors, initial encounter; Y93.89 Activity, other specified; Y92.89 Other specified places as the place of occurrence of the external cause; Y99.8 Other external cause status; Z82.0 Family history of epilepsy and other diseases of the nervous system; Z82.49 Family history of ischemic heart disease and other diseases of the circulatory system; Z87.891 Personal history of nicotine dependence; Z96.612 Presence of left artificial shoulder joint; Z88.8 Allergy status to other drugs, medicaments and biological substances
CPT/HCPCS: 36415; 71100; 72131; 73030; 80048; 80053; 80061; 81001; 82947; 83540; 83550; 83735; 84443; 85025; 85027; 85651; 86140; 87086; 93005; 93306; 96365; 96375; J0696; J2405; 97110; 97116; 97530; 99285-25; J7030